=== PATIENT | male | born 1940 | race American Indian/Alaskan Native ===

== ENCOUNTER 2018-05-28 06:31 | Emergency (ER) | payer MEDICARE ==
[2018-05-28 06:32] VITALS: BMI 25.1
[2018-05-28 06:56] VITALS: TEMP 98.1
--- NOTE | 2018-05-28 07:20 | ED PDOC ---
Arrival/HPI - General Chief Complaint: High Blood Pressure Historian: Patient - History of Present Illness Narrative History of Present Illness (Text): 05/28/18 07:40 A 78 year old male, whose past medical history includes hypertension and diabetes, presents to the emergency department complaining of elevated blood pressure for the past few days. Patient reports blood pressure has been 180s/(unknown number), and this morning found blood pressure to be over 220s/(unknown number). States his hypertension medications dosages have not changed. Patient mentions also feeling off-balance due to elevation of blood pressure, and also previously was experiencing left-backside of head, however currently does not feel this issue while here in the ER. Patient denies any nausea, vomiting, syncope, abdominal pain, vision changes, headache, neck pain/stiffness, weakness, chest pain, shortness of breath, or any other complaints at this time. Of note, patient states he has an appointment with his PMD tomorrow. Past Medical History - Provider Review Nursing Documentation Reviewed: Yes - Infectious Disease Hx of Infectious Diseases: None - Tetanus Immunization Tetanus Immunization: Unknown - Cardiac Hx Hypertension: Yes - Endocrine/Metabolic Hx Diabetes Mellitus Type 2: Yes - Hematological/Oncological Hx Blood Transfusions: No Hx Blood Transfusion Reaction: No - Musculoskeletal/Rheumatological Hx Musculoskeletal Disorders: Yes - Psychiatric Hx Psychophysiologic Disorder: No Hx Anxiety: No Hx Bipolar Disorder: No Hx Depression: No Hx Emotional Abuse: No Hx Hallucinations: No Hx Panic Disorder: No Hx Post Traumatic Stress Disorder: No Hx Psychosis: No Hx Physical Abuse: No Hx Schizophrenia: No Hx Sexual Abuse: No Hx Substance Use: No - Past Surgical History Past Surgical History: No Previous - Anesthesia Hx Anesthesia: No Hx Anesthesia Reactions: No Hx Malignant Hyperthermia: No - Suicidal Assessment Feels Threatened In Home Enviroment: No Family/Social History - Physician Review Nursing Documentation Reviewed: Yes Family/Social History: No Known Family HX Smoking Status: Former Smoker Hx Alcohol Use: No (2-3 BEERS /DAY) Hx Substance Use: No Hx Substance Use Treatment: No Allergies/Home Meds Allergies/Adverse Reactions: Allergies No Known Allergies Allergy (Verified 09/21/14 07:41) Home Medications: Home Meds Medication Instructions Recorded Confirmed Atorvastatin Calcium 20 mg PO DAILY 05/30/12 05/28/18 Metformin Hydrochloride [Metformin] 500 mg PO DAILY 05/30/12 05/28/18 Fish Oil [Winlock 3] 1,000 mg PO DAILY 05/31/12 05/28/18 Amlodipine Besylate 10 mg PO DAILY 09/21/14 05/28/18 Enalapril Maleate [Enalapril] 10 mg PO DAILY 09/21/14 05/28/18 Aspirin [Aspirin Chewable] 81 mg PO DAILY 05/28/18 05/28/18 Finasteride [Proscar] 5 mg PO DAILY 05/28/18 05/28/18 Metoprolol Succinate [Toprol Xl] 25 mg PO BID 05/28/18 05/28/18 Tamsulosin [Flomax] 0.4 mg PO DAILY 05/28/18 05/28/18 Review of Systems - Physician Review All systems were reviewed & negative as marked: Yes - Review of Systems Eyes: absent: Vision Changes Respiratory: absent: SOB Cardiovascular: absent: Chest Pain, Syncope Gastrointestinal: absent: Abdominal Pain, Nausea, Vomiting Musculoskeletal: absent: Neck Pain (and no neck stiffness) Neurological: absent: Headache, Other (no weakness) Physical Exam - Physical Exam Narrative Physical Exam (Text): PE: Gen: NAD, cooperative, well appearing, non-toxic. Head: NCAT. HEENT: EYES: PERRL, EOMI, conjunctiva clear, EARS: TMs clear MOUTH: moist MM, posterior pharynx without erythema or exudate, uvula midline. CV: (+) S1S2, RRR, no M/G/R LUNGS: CTA B/L, No W/R/R, good air movement Abd: Soft, NTTP, no guarding, rebound or rigidity. Neuro: AAO x 3, GCS 15, CN 2-12 intact, motor and sensory grossly intact, 5/5 muscle strength B/L UE's and LE's. ext: no cyanosis or edema Vital Signs Reviewed: Yes Vital Signs Temp Pulse Resp BP Pulse Ox 05/28/18 06:55 98.1 F 50 L 18 221/95 H 100 Temperature: Afebrile Blood Pressure: Hypertensive Pulse: Regular Respiratory Rate: Normal Appearance: Positive for: Well-Appearing, Non-Toxic, Comfortable Pain Distress: None Mental Status: Positive for: Alert and Oriented X 3 Medical Decision Making ED Course and Treatment: 05/28/18 07:44 Impression: Plan: -- EKG -- Head CT -- Chest X-ray -- Labs -- Urinalysis -- Reassess and disposition Progress Notes: EKG: Ordered, reviewed, and independently interpreted the EKG. Rate : 48 BPM Rhythm : Sinus bradycardia Interpretation : No ST-segment elevations or depressions, no T-wave inversions, normal intervals. Comparison : No previous EKG for comparison. 05/28/2018 08:[address] IMPRESSION: No acute hemorrhage. Dictator: Eagle Eller MD 05/28/2018 09:07 Chest X-ray IMPRESSION: No active disease. Dictator: Miller Douglass MD 05/28/18 09:15 Upon reassessment, patient states he no longer is feeling symptoms and his blood pressure currently measures to 167/66. Discussed and reviewed results with patient. Patient will follow-up with PMD tomorrow, has an appointment at 13:00. - Lab Interpretations I have reviewed the lab results: Yes - Scribe Statement The provider has reviewed the documentation as recorded by the Elliotibe Jami Torrez Provider Scribe Attestation: All medical record entries made by the Scribe were at my direction and personally dictated by me. I have reviewed the chart and agree that the record accurately reflects my personal performance of the history, physical exam, medical decision making, and the department course for this patient. I have also personally directed, reviewed, and agree with the discharge instructions and disposition. Disposition/Present on Arrival - Present on Arrival Any Indicators Present on Arrival: No History of DVT/PE: No History of Uncontrolled Diabetes: No Urinary Catheter: No History of Decub. Ulcer: No History Surgical Site Infection Following: None - Disposition Have Diagnosis and Disposition been Completed?: Yes Diagnosis: Hypertension Disposition: HOME/ ROUTINE Disposition Time: 09:20 Patient Plan: Discharge Condition: STABLE Discharge Instructions (ExitCare): High Blood Pressure (DC), DASH Diet Referrals: Brittany Apodaca MD [Family Provider] - Follow up with primary Forms: [employer] (E[place]ian)
[2018-05-28 08:01] LABS: URINE BILIRUBIN NEGATIVE (NEGATIVE); URINE BLOOD NEGATIVE (NEGATIVE); URINE GLUCOSE (UA) NEGATIVE (NEGATIVE); URINE LEUKOCYTE ESTERASE NEGATIVE Leu/uL (NEGATIVE); URINE PROTEIN 30 mg/dL (<30 mg/dL); URINE UROBILINOGEN 0.2 E.U./dL (<1 E.U./dL)
[2018-05-28 08:03] LABS: BASO # 0.02 K/mm3 (0.0-2.0); BASO % 0.2 % (0.0-3.0); EOS # 0.3 (0.0-0.7); EOS % 3.5 % (1.5-5.0); GRAN # 5.34 (1.4-6.5); GRAN % 66.2 % (50.0-68.0); HEMOGLOBIN 14.6 g/dL (14.0-18.0); LYMPH # 1.5 (1.2-3.4); LYMPH % 18.9 % (22.0-35.0); MEAN CELL VOLUME 91.1 fl (80.0-105.0); MEAN CORPUSCULAR HEMOGLOBIN 30.9 pg (25.0-35.0); MEAN CORPUSCULAR HGB CONC 33.9 g/dl (31.0-37.0); MEAN PLATELET VOLUME 10.9 fl (7.0-11.0); MONO # 0.9 (0.1-0.6); MONO % 11.2 % (1.0-6.0); RBC 4.73 10^6/uL (3.5-6.1); RED CELL DISTRIBUTION WIDTH 14.2 % (11.5-14.5); URINE APPEARANCE SL CLOUDY (CLEAR); URINE COLOR YELLOW (YELLOW); WHITE BLOOD COUNT 8.1 10^3/uL (4.5-11.0)
[2018-05-28 08:14] LABS: URINE BACTERIA TRACE (NEG); URINE EPITHELIAL CELLS 0 - 2 /hpf (0-5); URINE RBC 0 - 2 /hpf (0-2); URINE WBC 0 - 2 /hpf (0-6)
[2018-05-28 08:24] LABS: ALB/GLOB RATIO 1.1 (1.1-1.8); ALBUMIN 3.9 g/dL (3.0-4.8); ALT/SGPT 23 U/L (7-56); AST/SGOT 24 U/L (17-59); BLOOD UREA NITROGEN 15 mg/dL (7-21); CALCIUM 9.3 mg/dL (8.4-10.5); GFR NON-AFRICAN AMERICAN > 60
[2018-05-28 08:35] LABS: TROPONIN I < 0.01 ng/mL
--- NOTE | 2018-05-28 09:00 | CT ---
Date of service: 05/28/2018 PROCEDURE: CT HEAD WITHOUT CONTRAST. HISTORY: htn,h/a COMPARISON: None available. TECHNIQUE: Axial computed tomography images were obtained through the head/brain without intravenous contrast. Radiation dose: Total exam DLP = 854.95 mGy-cm. This CT exam was performed using one or more of the following dose reduction techniques: Automated exposure control, adjustment of the mA and/or kV according to patient size, and/or use of iterative reconstruction technique. FINDINGS: HEMORRHAGE: No intracranial hemorrhage. BRAIN: No mass effect or edema. Atrophy and chronic periventricular white matter ischemic disease. VENTRICLES: Unremarkable. No hydrocephalus. CALVARIUM: Unremarkable. PARANASAL SINUSES: Unremarkable as visualized. No significant inflammatory changes. MASTOID AIR CELLS: Unremarkable as visualized. No inflammatory changes. OTHER FINDINGS: None. IMPRESSION: No acute hemorrhage.
--- NOTE | 2018-05-28 09:11 | RAD ---
Date of service: 05/28/2018 HISTORY: sob/htn COMPARISON: No prior. TECHNIQUE: Chest PA and lateral FINDINGS: LUNGS: No active pulmonary disease. PLEURA: No significant pleural effusion identified. No pneumothorax apparent. CARDIOVASCULAR: Aortic calcifications Normal cardiac size. No pulmonary vascular congestion. OSSEOUS STRUCTURES: No significant abnormalities. VISUALIZED UPPER ABDOMEN: Normal. OTHER FINDINGS: None. IMPRESSION: No active disease.
[2018-05-28 09:20] VITALS: BP 167/55; PULSE 48; RESP 16; O2SAT 99
--- NOTE | 2018-05-28 14:33 | CARD ---
APPROVED REPORT Date of service: 05/28/2018 EKG Measurement Heart [id number] NC 170P51 [id number] <Conclusion> Marked sinus bradycardia Abnormal ECG
== END 2018-05-28 09:36 | disposition home or self-care (01) ==
LOC: ED 06:31
DX: I10 Essential (primary) hypertension (principal); E11.9 Type 2 diabetes mellitus without complications; Z87.891 Personal history of nicotine dependence